=== PATIENT | male | born 1965 | race Caucasian/White ===

== ENCOUNTER → 2023-08-29 10:27 | Outpatient (REF) | payer BC, SELFPAY ==
[2023-08-29 11:53] LABS: ALT (SGPT) 18 U/L (0-50); AST (SGOT) 23 U/L (17-59); Albumin 4.3 g/dl (3.5-5.0); Alkaline Phosphatase 93 U/L (38-126); Blood Urea Nitrogen 20 mg/dl (9-20); Calcium 9.5 mg/dl (8.4-10.2); Carbon Dioxide 27 mmol/L (22-30); Chloride 103 mmol/L (98-107); Glucose 100 mg/dl (70-99); Iron 54 ug/dl (49-181); Potassium 4.9 mmol/L (3.5-5.1); Sodium 136 mmol/L (135-145); Total Bilirubin 0.5 mg/dl (0.2-1.3); Total Protein 7.2 g/dl (6.3-8.2); eGFR > 60.00
[2023-08-29 12:02] LABS: Percent Saturation 15 % (20-50); Total Iron Binding Capacity 354 ug/dl (261-462)
[2023-08-29 12:32] LABS: Glycohemoglobin (HgbA1c) 5.7 % (4.0-5.6)
== END ==
LOC: REG 10:27
PROVIDERS: ATTENDING PHYSICIAN Family Medicine
DX: I10 Essential (primary) hypertension (principal); Z00.00 Encounter for general adult medical examination without abnormal findings; E83.52 Hypercalcemia; R73.01 Impaired fasting glucose; E78.00 Pure hypercholesterolemia, unspecified; N03.9 Chronic nephritic syndrome with unspecified morphologic changes; I12.9 Hypertensive chronic kidney disease with stage 1 through stage 4 chronic kidney disease, or unspecified chronic kidney disease; E87.5 Hyperkalemia
CPT/HCPCS: 36415; 80053; 83036; 83540; 83550

== ENCOUNTER → 2023-11-23 09:47 | Outpatient (REF) | payer BC, SELFPAY ==
[2023-11-23 11:17] LABS: Urine Albumin Negative (Neg - Trace); Urine Bilirubin Negative (Negative); Urine Character Clear (Clear); Urine Color Yellow; Urine Glucose Negative (Negative); Urine Ketone Negative (Negative); Urine Leukocyte Negative (Negative); Urine Nitrite Negative (Negative); Urine Occult Blood Negative (Negative); Urine Urobilinogen Negative (Neg - 1+)
[2023-11-23 11:46] LABS: Blood Urea Nitrogen 19 mg/dl (9-20); Calcium 10.1 mg/dl (8.4-10.2); Carbon Dioxide 29 mmol/L (22-30); Chloride 102 mmol/L (98-107); Glucose 89 mg/dl (70-99); Phosphorus 2.3 mg/dl (2.5-4.5); Potassium 4.5 mmol/L (3.5-5.1); Sodium 139 mmol/L (135-145); Uric Acid 7.3 mg/dl (3.5-8.5); eGFR > 60.00
[2023-11-23 12:03] LABS: Complement C3 107 mg/dl (88-165)
[2023-11-23 12:20] LABS: Protein/creatinine Ratio 0.3; Urine Protein 15 mg/dl
[2023-11-23 19:26] LABS: Hepatitis B Surface Antigen Negative (Negative)
[2023-11-23 19:43] LABS: Hepatitis B Surface Antibody Positive; Hepatitis C Antibody Negative (Negative)
[2023-11-24 14:13] LABS: ANA, IgG Reflex to HEp-2 None Detected (None Detected)
[2023-11-25 14:14] LABS: 24 Hour Urine Total Volume Random mL; Urine Collection Length Random hr; Urine Free Kappa Light Chains 4.47 mg/L (0.00-32.90); Urine Free Lambda Light Chains 0.83 mg/L (0.00-3.79)
[2023-11-25 22:59] LABS: Alpha 1 Globulin 0.24 g/dL (0.19-0.46); Alpha 2 Globulin 0.58 g/dL (0.48-1.05); SPEP IFE Reflex Not Done; Total Protein-Electrophoresis 7.1 g/dL (6.3-8.2)
== END ==
LOC: REG 09:47
PROVIDERS: ATTENDING PHYSICIAN Internal Medicine; FAMILY PHYSICIAN Family Medicine
DX: N02.8 Recurrent and persistent hematuria with other morphologic changes (principal); R80.9 Proteinuria, unspecified; I10 Essential (primary) hypertension
CPT/HCPCS: 36415; 80048; 81003; 82570; 83521; 83735; 84100; 84155; 84156; 84165; 84550; 86038; 86160; 86335; 86706; 86803; 87340

== ENCOUNTER → 2023-12-21 11:10 | Outpatient (REF) | payer BC, SELFPAY ==
[2023-12-21 12:11] LABS: ALT (SGPT) 20 U/L (0-50); AST (SGOT) 23 U/L (17-59); Albumin 4.4 g/dl (3.5-5.0); Alkaline Phosphatase 98 U/L (38-126); Blood Urea Nitrogen 15 mg/dl (9-20); Carbon Dioxide 32 mmol/L (22-30); Chloride 100 mmol/L (98-107); Glucose 98 mg/dl (70-99); HDL Cholesterol 65 mg/dl; Iron 168 ug/dl (49-181); LDL Cholesterol, Calculated 141 mg/dl; Potassium 4.5 mmol/L (3.5-5.1); Sodium 137 mmol/L (135-145); Total Bilirubin 0.9 mg/dl (0.2-1.3); Total Cholesterol 219 mg/dl (50-199); Total Protein 7.2 g/dl (6.3-8.2); Triglyceride 68 mg/dl (10-149); Very Low Density Lipoprotein 13 mg/dl (0-30); eGFR > 60.00
[2023-12-21 12:20] LABS: Percent Saturation 52 % (20-50); Total Iron Binding Capacity 320 ug/dl (261-462)
[2023-12-21 12:46] LABS: Ferritin 13.9 ng/ml (17.9-464.0)
[2023-12-21 13:14] LABS: % Basophils 0.5 % (0-2); % Immature Granulocytes 0.4 % (0-0.5); % Lymphocytes 32.4 % (20.5-51.1); % Monocytes 7.5 % (1.7-9.3); % Neutrophils 56.2 % (42.2-75.2); Absolute Basophils 0.1 10^3/uL (0-0.2); Absolute Eosinophils 0.3 10^3/uL (0-0.7); Absolute Lymphocytes 3.1 10^3/uL (1.2-3.4); Absolute Monocytes 0.7 10^3/uL (0.1-0.6); Absolute Neutrophils 5.4 10^3/uL (1.4-6.5); Hemoglobin 15.7 g/dL (13.0-18.0); Mean Corp Hgb Conc. 32.7 g/dL (33.0-37.0); Mean Corpuscular Volume 79.3 fL (80.0-94.0); Mean Platelet Volume 9.6 fL (7.4-10.4); Nucleated Red Blood Cells % 0 % (-); Platelet Count 276 10^3/uL (130-400); Red Blood Cell Count 6.05 10^6/uL (4.70-6.10); Red Cell Dist. Width 17.1 % (11.5-14.5); White Blood Cell Count 9.7 10^3/uL (4.8-10.8)
[2023-12-21 13:51] LABS: Glycohemoglobin (HgbA1c) 5.7 % (4.0-5.6)
== END ==
LOC: REG 11:10
PROVIDERS: ATTENDING PHYSICIAN Family Medicine
DX: R71.8 Other abnormality of red blood cells (principal); R73.02 Impaired glucose tolerance (oral); Z13.6 Encounter for screening for cardiovascular disorders
CPT/HCPCS: 36415; 80053; 80061; 82728; 83036; 83540; 83550; 85025

== ENCOUNTER → 2024-05-23 13:51 | Outpatient (REF) | payer BC, SELFPAY ==
[2024-05-23 14:23] LABS: % Basophils 0.5 % (0-2); % Immature Granulocytes 0.4 % (0-0.5); % Lymphocytes 35.8 % (20.5-51.1); % Monocytes 8.5 % (1.7-9.3); % Neutrophils 52.8 % (42.2-75.2); Absolute Eosinophils 0.2 10^3/uL (0-0.7); Absolute Lymphocytes 2.9 10^3/uL (1.2-3.4); Absolute Monocytes 0.7 10^3/uL (0.1-0.6); Absolute Neutrophils 4.2 10^3/uL (1.4-6.5); Hematocrit 50.9 % (39.0-52.0); Hemoglobin 16.8 g/dL (13.0-18.0); Mean Corpuscular Hgb 29.2 pg (27.0-31.0); Mean Corpuscular Volume 88.4 fL (80.0-94.0); Mean Platelet Volume 9.2 fL (7.4-10.4); Nucleated Red Blood Cells % 0 % (-); Platelet Count 214 10^3/uL (130-400); Red Blood Cell Count 5.76 10^6/uL (4.70-6.10); Red Cell Dist. Width 13.9 % (11.5-14.5)
[2024-05-23 15:32] LABS: ALT (SGPT) 15 U/L (0-50); AST (SGOT) 21 U/L (17-59); Albumin 4.3 g/dl (3.5-5.0); Alkaline Phosphatase 70 U/L (38-126); Blood Urea Nitrogen 19 mg/dl (9-20); Calcium 9.7 mg/dl (8.4-10.2); Carbon Dioxide 29 mmol/L (22-30); Chloride 100 mmol/L (98-107); Glucose 91 mg/dl (70-99); HDL Cholesterol 69 mg/dl; Iron 136 ug/dl (49-181); LDL Cholesterol, Calculated 137 mg/dl; Phosphorus 2.3 mg/dl (2.5-4.5); Potassium 5.1 mmol/L (3.5-5.1); Sodium 137 mmol/L (135-145); Total Bilirubin 0.6 mg/dl (0.2-1.3); Total Cholesterol 216 mg/dl (50-199); Total Protein 6.9 g/dl (6.3-8.2); Triglyceride 52 mg/dl (10-149); Uric Acid 7.5 mg/dl (3.5-8.5); Very Low Density Lipoprotein 10 mg/dl (0-30); eGFR > 60.00
[2024-05-23 15:35] LABS: Glycohemoglobin (HgbA1c) 5.5 % (4.0-5.6)
[2024-05-23 15:42] LABS: Percent Saturation 44 % (20-50); Total Iron Binding Capacity 308 ug/dl (261-462)
[2024-05-23 16:02] LABS: PSA, Total - Screen 0.93 ng/ml (0.0-4.0)
[2024-05-23 16:06] LABS: Ferritin 18.1 ng/ml (17.9-464.0); Protein/creatinine Ratio 0.2; Urine Protein 15 mg/dl
[2024-05-23 16:15] LABS: TSH Reflex To Free T4 1.41 uIU/ml (0.47-4.68)
[2024-05-23 16:49] LABS: Urine Albumin Negative (Neg - Trace); Urine Bilirubin Negative (Negative); Urine Character Clear (Clear); Urine Color Yellow; Urine Glucose Negative (Negative); Urine Ketone Negative (Negative); Urine Leukocyte Negative (Negative); Urine Nitrite Negative (Negative); Urine Occult Blood Negative (Negative); Urine Urobilinogen Negative (Neg - 1+)
== END ==
LOC: REG 13:51
PROVIDERS: ATTENDING PHYSICIAN Family Medicine; REFERRING PHYSICIAN Internal Medicine
DX: R73.02 Impaired glucose tolerance (oral) (principal); E78.5 Hyperlipidemia, unspecified; Z13.29 Encounter for screening for other suspected endocrine disorder; Z12.5 Encounter for screening for malignant neoplasm of prostate; I10 Essential (primary) hypertension; D75.1 Secondary polycythemia; R71.8 Other abnormality of red blood cells; Z00.00 Encounter for general adult medical examination without abnormal findings; N02.8 Recurrent and persistent hematuria with other morphologic changes; R80.9 Proteinuria, unspecified
CPT/HCPCS: 36415; 80053; 80061; 81003; 82570; 82728; 83036; 83540; 83550; 83735; 84100; 84156; 84443; 84550; 85025; G0103

== ENCOUNTER → 2025-05-25 10:29 | Outpatient (REF) | payer OTHER, SELFPAY ==
[2025-05-25 11:55] LABS: Hematocrit 52.3 % (39.0-52.0); Hemoglobin 17.6 g/dL (13.0-18.0); Mean Corp Hgb Conc. 33.7 g/dL (33.0-37.0); Mean Corpuscular Volume 88.5 fL (80.0-94.0); Nucleated Red Blood Cells % 0 % (-); Platelet Count 233 10^3/uL (130-400); Red Cell Dist. Width 13.7 % (11.5-14.5)
[2025-05-25 12:10] LABS: ALT (SGPT) 17 U/L (0-50); AST (SGOT) 21 U/L (17-59); Albumin 4.8 g/dl (3.5-5.0); Alkaline Phosphatase 81 U/L (38-126); Blood Urea Nitrogen 18 mg/dl (9-20); Calcium 10.1 mg/dl (8.4-10.2); Carbon Dioxide 28 mmol/L (22-30); Chloride 99 mmol/L (98-107); Glucose 92 mg/dl (70-99); HDL Cholesterol 89 mg/dl; Iron 197 ug/dl (49-181); LDL Cholesterol, Calculated 149 mg/dl; Magnesium 2.1 mg/dl (1.6-2.3); Potassium 4.5 mmol/L (3.5-5.1); Sodium 134 mmol/L (135-145); Total Protein 8.0 g/dl (6.3-8.2); Uric Acid 6.6 mg/dl (3.5-8.5); Very Low Density Lipoprotein 11 mg/dl (0-30); eGFR > 60.00
[2025-05-25 12:19] LABS: Total Iron Binding Capacity 283 ug/dl (261-462)
[2025-05-25 12:20] LABS: Urine Character Clear (Clear)
[2025-05-25 12:36] LABS: Glycohemoglobin (HgbA1c) 5.4 % (4.0-5.9)
[2025-05-25 12:41] LABS: Ferritin 50.5 ng/ml (17.9-464.0)
== END ==
LOC: REG 10:29
PROVIDERS: ATTENDING PHYSICIAN Internal Medicine; FAMILY PHYSICIAN Family Medicine
DX: R73.02 Impaired glucose tolerance (oral) (principal); E78.5 Hyperlipidemia, unspecified; Z13.29 Encounter for screening for other suspected endocrine disorder; R71.8 Other abnormality of red blood cells; I12.9 Hypertensive chronic kidney disease with stage 1 through stage 4 chronic kidney disease, or unspecified chronic kidney disease; N02.8 Recurrent and persistent hematuria with other morphologic changes; N28.1 Cyst of kidney, acquired; N18.2 Chronic kidney disease, stage 2 (mild)
CPT/HCPCS: 36415; 80053; 80061; 81003; 82570; 82728; 83036; 83540; 83550; 83735; 84156; 84443; 84550; 85025